=== PATIENT | male | born 1985 | race Two or more races ===

== ENCOUNTER 2024-08-29 02:31 | Emergency (ER) | payer MEDICAID, SELFPAY ==
[2024-08-29 02:33] VITALS: BMI 22.3
[2024-08-29 02:56] VITALS: BP 120/66; PULSE 93; RESP 16; TEMP 37.1; O2SAT 96
--- NOTE | 2024-08-29 03:06 | PD.EDWOUND ---
ED Wound/Laceration-RME/HPI General Chief Complaint: Wound/Laceration Stated Complaint: WOUND TO LEFT FOOT Time Seen by Provider: 08/29/24 02:59 Arrival date/time: 08/29/24 02:31 39M with history of homelessness and psych/drug use presents to ED with open wound on L foot w/o initially fall/trauma. Limitations: no limitations Related Data Previous Rx's ?Medication ?Instructions ?Recorded ibuprofen 600 mg tablet 600 mg PO TID PRN pain #20 tabs 12/31/22 doxycycline hyclate 100 mg tablet 100 mg PO BID 10 days #20 tabs 08/29/24 Allergies Allergy/AdvReac Type Severity Reaction Status Date / Time No Known Allergies Allergy Verified 08/29/24 02:32 Review of Systems Review of Systems Systems Reviewed: All systems reviewed, normal except as documented Constitutional Constitutional: Reports system reviewed and no additional complaints, except as documented, Denies fever(s) and Denies headache(s) ENT Ears, Nose, Mouth, and Throat: Denies disequilibrium and Denies headache(s) Cardiovascular Cardiovascular: Reports system reviewed and no additional complaints, except as documented, Denies chest pain and Denies dyspnea Respiratory Respiratory: Reports system reviewed and no additional complaints, except as documented, Denies cough and Denies dyspnea Gastrointestinal Gastrointestinal: Reports system reviewed and no additional complaints, except as documented, Denies abdominal pain, Denies nausea and Denies vomiting Integumentary/Breasts Skin/Breast: Reports as per HPI and Reports skin pain Neurologic Neurologic: Reports system reviewed and no additional complaints, except as documented, Denies confusion, Denies disequilibrium and Denies headache(s) Psychiatric Psychiatric: Denies confusion Past Medical History Past Medical History NEUROLOGIC: Negative Neurological Disorders, Dementia or Brain Tumor CARDIAC: Negative Cardiac Disorders, Atrial Fibrillation, Coronary Artery Disease or Congestive Heart Failure RESPIRATORY: Negative Chronic Obstructive Pulmonary Disease (COPD), Asthma or Bronchitis GASTROINTESTINAL: Negative Gastrointestinal Disorders, Liver Cancer, Hepatitis or Pancreatic Cancer GENITOURINARY: Negative Genitourinary Disorders or Renal Disease MUSCULOSKELETAL: Negative Musculoskeletal Disorders, Marfan's Syndrome or Bone Cancer ENT: Negative Blind or Deafness ENDOCRINE: Negative Endocrine Disorders, Diabetes Mellitus Type 1 or Diabetes Mellitus Type 2 HEMATOLOGIC: Negative Blood Disorders, Anemia or Sickle Cell Disease PSYCHO/SOCIAL: Positive Psychiatric Problems and Recreational Drug Use OTHER HISTORY: Positive Chicken Pox; Negative Autoimmune Disease, Down Syndrome, Developmental Delay, MRSA, VRSA, Vancomycin-Resistant Enterococci, Human Immunodeficiency Virus (HIV), Measles, Mumps, Rubella ([place] Measles), Pertussis, Clostridium Difficile or Cancer Family History FAMILY HISTORY: Negative Family Psychiatric Problems, Family Respiratory Disorders, Family Cardiac Disorders, Family Gastrointestinal Problems, Family Cancer, Family Surgery or Family Anesthesia Reaction Social History SMOKING STATUS: Current some day smoker SUBSTANCE USE: methamphetamine ED Exam General Limitations: Present no limitations General appearance: Present alert and in no apparent distress Head Head exam: Present atraumatic Eye Eye exam: Present normal appearance, PERRL and EOMI ENT ENT exam: Present normal exam, normal oropharynx and mucous membranes moist Neck Neck exam: Present normal inspection, full ROM and trachea midline Chest Chest inspection: Present normal inspection and symmetric chest wall rise Respiratory Respiratory exam: Present normal lung sounds bilaterally Cardiovascular Cardiovascular exam: Present regular rate, normal rhythm and normal heart sounds Abdominal Exam Abdominal exam: Present soft and normal bowel sounds Extremities Exam Extremities exam: Present full ROM Expanded Lower Extremity Exam Foot/toe exam: Present full ROM (Open wound on L heel/foot area about 2 cm in size), tenderness and erythema Back Exam Back exam: Present normal inspection and full ROM Neurological Exam Neurological exam: Present alert, oriented X3 and CN II-XII intact Psychiatric Psychiatric exam: Present normal affect and normal mood Skin Skin exam: Present warm, dry, intact and normal color Course Quality Measures none Orders Category Date Time Status Wound Care NOW Care 08/29/24 03:00 Active Doxycycline [Vibramycin] Med 08/29/24 03:00 Discontinued 100 mg PO X1 ONE Vital Signs Vital signs: Vital Signs Temperature 98.8 F 08/29/24 02:56 Pulse Rate 93 08/29/24 02:56 Respiratory Rate 16 08/29/24 02:56 Blood Pressure 120/66 08/29/24 02:56 Pulse Oximetry (%) 96 08/29/24 02:56 Oxygen Delivery Method Room Air 08/29/24 02:56 O2 at 96% on RA and WNLs Wound / Laceration MDM Narrative MDM Narrative:: 39M with history of homelessness and psych/drug use presents to ED with open wound on L foot w/o initially fall/trauma. Physical exam reveals open wound about 2 cm in size with surrounding redness and tenderness on L lateral foot near heel. Patient is afebrile, calm, and alert. Gait normal. Wound cleaned/irrigated and dressed. Given ABX, elder counselor, and Wound Care Center referral. Likely caused by friction from dirty socks and old footware. Patient data External records reviewed:: [facility] previous records Clinical information provided by:: patient Social determinants that could affect healthcare access:: substance use Patient has the following chronic illnesses:: homelessness and psych/drug use How is presenting disease/condition affected by chronic disease/condition?: exacerbated by Evaluation data The following diagnostics were reviewed and interpreted by me:: other (specify) (none) Lab and/or radiology exams considered but not ordered:: not ordered Interpretation Summary: n/a Medications / Prescriptions Medications or Prescriptions considered but not ordered:: ordered Medication administrations:: Medication Administration History Discontinued Medications Doxycycline Hyclate (Doxycycline 100 Mg Tablet) 100 mg PO X1 ONE Stop: 08/29/24 03:01 above Consultations Consultation(s) initiated? (list below): No Diagnosis Wound Differential Diagnosis: laceration, abscess, abrasion, avulsion of skin and other (cellulitis) Most likely diagnosis given after review of the tests above:: cellulitis Admission Indicated Admission indicated?: not indicated Admission Request Was there a request for admission?: No Disposition Plan Disposition Plan: Discharge Discharge Attestation Discharge Attestation: The patient and all family members were given an opportunity to ask questions and understood the discharge instructions. Discharge instructions specifically effects, indications for sooner follow up or return to the emergency department, and the expected course of current diagnosis. Patient condition: Stable Discharge Plan Plan Patient Disposition: HOME (Self Care) Discharge Disposition comment: Stable Prescriptions/Referrals Prescriptions/Med Rec: New doxycycline hyclate 100 mg tablet 100 mg PO BID 10 Days Qty: 20 0RF No Action ibuprofen 600 mg tablet 600 mg PO TID PRN (Reason: pain) Qty: 20 0RF Problem List Clinical Impression: Cellulitis Patient/Caregiver Discharge Instructions Education Materials: ED Cellulitis Additional Instructions: Please follow-up with PCP within 24-48 hours and return immediately if symptoms worsen. Recommend following-up with Wound Care Center: [phone] Print Language: Nepali Stand Alone Forms: Patient Portal Info Letter MARCELINA/KEKE Supervising Physician ASHA Supervising Physician: Dr. Wilcox
[2024-08-29] MEDS: DOXYCYCLINE 100 MG TABLET PO (03:14)
== END 2024-08-29 03:18 | disposition home or self-care (01) ==
PROVIDERS: Emergency Provider Emergency Medicine
DX: S91.302A Unspecified open wound, left foot, initial encounter (principal); L03.116 Cellulitis of left lower limb; X58.XXXA Exposure to other specified factors, initial encounter; Z59.00 Homelessness unspecified
CPT/HCPCS: 99282; A9270

== ENCOUNTER 2024-09-22 08:25 | Emergency (ER) | payer MEDICAID, SELFPAY ==
[2024-09-22 08:36] VITALS: BP 145/87; PULSE 93; RESP 18; TEMP 36.6; O2SAT 98; BMI 20.9
--- NOTE | 2024-09-22 08:38 | XR_ITS ---
Examination: Forearm, left, 2 views. Technique: Forearm, AP, lateral 2 views Date and time of exam: September 22, 2024 0853 hours INDICATION: Patient fell today with injury to the forearm, forearm pain. FINDINGS: 5 mm acute fracture fragment projects adjacent to the radial head Shaft of the radius and ulna intact IMPRESSION: Recommend CT scan elbow follow-up to assess etiology of the 5 mm acute appearing fracture fragment projecting adjacent to the radial head
--- NOTE | 2024-09-22 08:38 | XR_ITS ---
Examination: Left elbow 3 views Technique: Elbow AP, oblique, lateral 3 views Exam date and time: September 22, 2024 0853 hours INDICATIONS: Patient fell today with injury to the elbow, elbow pain. FINDINGS: 5 mm acute fracture fragment projects adjacent to the radial head on the AP view This may be off the lateral humeral condylar region No dislocation IMPRESSION: Recommend CT scan elbow without contrast follow-up to assess etiology of the 5 mm acute fracture fragment projecting adjacent to the radial head.
--- NOTE | 2024-09-22 09:38 | XR_ITS ---
Examination: CT left elbow, without contrast. 2-D sagittal reconstructions. 2-D coronal reconstructions. 3-D reconstructions. Date and time of exam:September 22, 2024 1014 hours INDICATIONS: Injury to the elbow today, elbow pain CTDI: vol (mGy):5.4 DLP: (mGycm):136 Technique: Multiple 1.25 mm axial sections of the left elbow have been obtained. 2-D sagittal and coronal reconstructions have been obtained. 3-D reconstructions have been obtained. Low dose protocols were performed. One or more of the following dose reduction techniques were used; automated exposure control, adjustment of the mA and/or KV according to patient size, use of iterative reconstruction technique. Findings: Multiple fracture fragments, the largest 5 mm, off the posterior lateral humeral condyle, sagittal images 36 through 40 Olecranon intact And radial head appear intact No elbow effusion IMPRESSION: Multiple small fracture fragments avulsed off the posterior lateral humeral condyle
[2024-09-22] MEDS: ACETAMINOPHEN 500 MG TABLET 1000 MG PO (10:44)
[2024-09-22] MEDS: IBUPROFEN TAB 600 MG TABLET PO (10:44)
--- NOTE | 2024-09-22 11:10 | PD.EDUPEX ---
Upper Extremity Injury RME/HPI General Chief Complaint: Hand/Wrist Problems Stated Complaint: Broke left hand climbing a tree Time Seen by Provider: 09/22/24 08:29 Arrival date/time: 09/22/24 08:25 39-year-old male presents to the emergency department today for complaints of left elbow pain patient reports he injured his left elbow after trying to get a Frisbee out of a tree Limitations: no limitations Related Data Previous Rx's ?Medication ?Instructions ?Recorded ibuprofen 600 mg tablet 600 mg PO TID PRN pain #20 tabs 12/31/22 acetaminophen 325 mg capsule 650 mg (2 x 325 mg) PO Q8HR PRN 09/22/24 pain #30 caps ibuprofen 600 mg tablet 600 mg PO Q6H #30 tabs 09/22/24 Allergies Allergy/AdvReac Type Severity Reaction Status Date / Time No Known Allergies Allergy Verified 09/22/24 08:28 Review of Systems Review of Systems Systems Reviewed: All systems reviewed, normal except as documented Constitutional Constitutional: Reports system reviewed and no additional complaints, except as documented, Denies fever(s) and Denies headache(s) Eyes Eyes: Reports system reviewed and no additional complaints, except as documented and Denies blurry vision ENT Ears, Nose, Mouth, and Throat: Reports system reviewed and no additional complaints, except as documented, Denies headache(s), Denies nasal congestion and Denies nasal discharge Cardiovascular Cardiovascular: Reports system reviewed and no additional complaints, except as documented, Denies chest pain and Denies dyspnea Respiratory Respiratory: Reports system reviewed and no additional complaints, except as documented, Denies chest congestion, Denies cough and Denies dyspnea Gastrointestinal Gastrointestinal: Reports system reviewed and no additional complaints, except as documented and Denies abdominal pain Musculoskeletal Musculoskeletal: Reports system reviewed and no additional complaints, except as documented, Reports arthralgias, Denies deformity, Denies numbness and Denies tingling Integumentary/Breasts Skin/Breast: Reports system reviewed and no additional complaints, except as documented and Denies rash Neurologic Neurologic: Reports system reviewed and no additional complaints, except as documented, Reports as per HPI, Denies headache(s), Denies numbness and Denies tingling Past Medical History Past Medical History NEUROLOGIC: Negative Neurological Disorders, Dementia or Brain Tumor CARDIAC: Negative Cardiac Disorders, Atrial Fibrillation, Coronary Artery Disease or Congestive Heart Failure RESPIRATORY: Negative Chronic Obstructive Pulmonary Disease (COPD), Asthma or Bronchitis GASTROINTESTINAL: Negative Gastrointestinal Disorders, Liver Cancer, Hepatitis or Pancreatic Cancer GENITOURINARY: Negative Genitourinary Disorders or Renal Disease MUSCULOSKELETAL: Negative Musculoskeletal Disorders, Marfan's Syndrome or Bone Cancer ENT: Negative Blind or Deafness ENDOCRINE: Negative Endocrine Disorders, Diabetes Mellitus Type 1 or Diabetes Mellitus Type 2 HEMATOLOGIC: Negative Blood Disorders, Anemia or Sickle Cell Disease PSYCHO/SOCIAL: Positive Psychiatric Problems and Recreational Drug Use OTHER HISTORY: Positive Chicken Pox; Negative Autoimmune Disease, Down Syndrome, Developmental Delay, MRSA, VRSA, Vancomycin-Resistant Enterococci, Human Immunodeficiency Virus (HIV), Measles, Mumps, Rubella ([place] Measles), Pertussis, Clostridium Difficile or Cancer Family History FAMILY HISTORY: Negative Family Psychiatric Problems, Family Respiratory Disorders, Family Cardiac Disorders, Family Gastrointestinal Problems, Family Cancer, Family Surgery or Family Anesthesia Reaction Social History SMOKING STATUS: Current every day smoker SUBSTANCE USE: methamphetamine ED Exam General Limitations: Present no limitations General appearance: Present alert and in no apparent distress Head Head exam: Present atraumatic Eye Eye exam: Present normal appearance, PERRL and EOMI ENT ENT exam: Present normal exam, normal oropharynx and mucous membranes moist Neck Neck exam: Present normal inspection, full ROM and trachea midline Chest Chest inspection: Present normal inspection and symmetric chest wall rise Respiratory Respiratory exam: Present normal lung sounds bilaterally Cardiovascular Cardiovascular exam: Present regular rate, normal rhythm and normal heart sounds Abdominal Exam Abdominal exam: Present soft and normal bowel sounds Extremities Exam Extremities exam: Present full ROM, tenderness (Elbow pain left), normal capillary refill and joint swelling Back Exam Back exam: Present normal inspection and full ROM Neurological Exam Neurological exam: Present alert, oriented X3, CN II-XII intact, normal gait and reflexes normal; Absent motor sensory deficit Psychiatric Psychiatric exam: Present normal affect and normal mood Skin Skin exam: Present warm, dry, intact and normal color Course Quality Measures none Orders Category Date Time Status CT elbow LT wo con Stat Exams 09/22/24 09:38 Completed XR elbow comp LT min 3V Stat Exams 09/22/24 08:38 Completed XR forearm LT 2V Stat Exams 09/22/24 08:38 Completed Acetaminophen Tab [Tylenol ES Tab] Med 09/22/24 09:38 Discontinued 1,000 mg PO X1 ONE Ibuprofen Tab [Motrin Tab] Med 09/22/24 09:38 Discontinued 600 mg PO X1 ONE Vital Signs Vital signs: Vital Signs Temperature 98 F 09/22/24 08:36 Pulse Rate 93 09/22/24 08:36 Respiratory Rate 18 09/22/24 08:36 Blood Pressure 145/87 H 09/22/24 08:36 Pulse Oximetry (%) 98 09/22/24 08:36 Oxygen Delivery Method Room Air 09/22/24 08:36 O2 saturation 98% room air within normal limits Extremity Injury MDM Narrative MDM Narrative:: 39-year-old male presents to the emergency department today for complaints of left elbow pain patient reports he injured his left elbow after trying to get a Frisbee out of a tree On exam patient is tenderness of the left elbow patient has no tenderness of the wrist or hand patient ports no head or neck injury Imaging of the left elbow obtained consistent with fracture Patient placed in a posterior elbow splint given pain medication Explained to the patient he must follow-up with his PCP in the next 24 to 48 hours in order get a referral to orthopedics and for any worsening symptoms return immediately Patient data External records reviewed:: [facility] previous records Clinical information provided by:: patient Social determinants that could affect healthcare access:: mental health Patient has the following chronic illnesses:: See history How is presenting disease/condition affected by chronic disease/condition?: exacerbated by Evaluation data The following diagnostics were reviewed and interpreted by me:: radiology exam(s) Lab and/or radiology exams considered but not ordered:: Radiology obtain Interpretation Summary: Reviewed by me Medications / Prescriptions Medications or Prescriptions considered but not ordered:: Given Medication administrations:: Medication Administration History Discontinued Medications Acetaminophen (Acetaminophen 500 Mg Tablet) 1,000 mg PO X1 ONE Stop: 09/22/24 09:39 Last Admin: 09/22/24 10:44 Dose: 1,000 mg Documented By: STEVEN Ibuprofen (Ibuprofen Tab 600 Mg Tablet) 600 mg PO X1 ONE Stop: 09/22/24 09:39 Last Admin: 09/22/24 10:44 Dose: 600 mg Documented By: STEVEN Given Consultations Consultation(s) initiated? (list below): No Diagnosis Upper Extremity Injury Differential Diagnosis: other (Sprain, fracture) Most likely diagnosis given after review of the tests above:: Elbow fracture Admission Indicated Admission indicated?: not indicated Admission Request Was there a request for admission?: No Disposition Plan Disposition Plan: Discharge Discharge Attestation Discharge Attestation: The patient and all family members were given an opportunity to ask questions and understood the discharge instructions. Discharge instructions specifically effects, indications for sooner follow up or return to the emergency department, and the expected course of current diagnosis. Patient condition: Stable Discharge Plan Plan Patient Disposition: HOME (Self Care) Discharge Disposition comment: Stable Prescriptions/Referrals Prescriptions/Med Rec: New ibuprofen 600 mg tablet 600 mg PO Q6H Qty: 30 0RF acetaminophen 325 mg capsule 650 mg PO Q8HR PRN (Reason: pain) Qty: 30 0RF No Action ibuprofen 600 mg tablet 600 mg PO TID PRN (Reason: pain) Qty: 20 0RF Referrals: No Primary/Family,Physician [Primary Care Provider] - In 1 week Problem List Clinical Impression: Closed fracture of left elbow Patient/Caregiver Discharge Instructions Education Materials: ED Elbow Fracture Additional Instructions: Please follow-up with your primary care doctor in the next 24 to 48 hours for referral to orthopedics for worsening symptoms or concerns return immediately Print Language: Vietnamese Stand Alone Forms: [employer] Award Info., Patient Portal Info Letter PA/[employer] Supervising Physician MARCELINA/KEKE Supervising Physician: Dr [email or web address]
[2024-09-22 11:18] VITALS: BP 122/68; PULSE 70; RESP 18; TEMP 36.8; O2SAT 98
== END 2024-09-22 11:19 | disposition home or self-care (01) ==
PROVIDERS: Emergency Provider Nurse Practitioner Primary Care
DX: S42.402A Unspecified fracture of lower end of left humerus, initial encounter for closed fracture (principal); X58.XXXA Exposure to other specified factors, initial encounter
CPT/HCPCS: 73080; 73090; 73200; 99283; A9270